=== PATIENT | female | born 1950 | race Caucasian/White ===

== ENCOUNTER → 2020-10-23 | Outpatient (CLI) | payer OTHER ==
--- NOTE | 2020-10-23 16:53 | NUR ---
LATE ENTRY: PT WHEELED TO EXIT PER IR STAFF AT 1635. PT AWAKE ALERT AND ABLE TO AMBULATE IN ROOM. TOLERATE GTUBE EXCHANGE WELL. GTUBE DRESSING AROUND SITE CLEAN DRY INTACT. TUBE SECURED WITH MESH TUBE GUAZE. VSS. VERBALIZES UNDERSTANDING OF DC INST.
== END | disposition home or self-care (01) ==
LOC: SPEC 13:35
PROVIDERS: ATTEND Radiology Diagnostic Radiology
DX: Z43.1 Encounter for attention to gastrostomy (principal); C06.2 Malignant neoplasm of retromolar area